=== PATIENT | female | born 1930 | race Caucasian/White ===

== ENCOUNTER 2016-08-08 09:00 | Day surgery (SDC) | payer OTHER ==
[2016-08-08] VITALS (8 sets, daily range): BP systolic 107–167; BP diastolic 51–77; PULSE 70–94; RESP 16–20; TEMP 97.6–97.7; O2SAT 92–97
[~2016-08-08] VITALS: Ht 162.6 cm; Wt 90.5 kg
[2016-08-08] MEDS ORDERED: LISI2.5T3 PO (09:35)
[2016-08-08] MEDS ORDERED: HYDR12.57 PO (09:35)
[2016-08-08] MEDS ORDERED: ATOR1TAB18 PO (09:35)
[2016-08-08] MEDS ORDERED: SODIUM CHLOR 0.9% 1000 ML IV SCH (09:45)
[2016-08-08] MEDS ORDERED: SODIUM CHLORIDE 5 ML FLUSH PRN IVF (09:45)
[2016-08-08] MEDS ORDERED: IMPLANTED VASCULAR ACCESS DEVICE/PORT - SODIUM CHLORIDE FLUSH PRN IVF (09:45)
[2016-08-08] MEDS ORDERED: IMPLANTED VASCULAR ACCESS DEVICE/PORT - SODIUM CHLORIDE FLUSH IVF SCH (10:00)
[2016-08-08] MEDS ORDERED: MIDAZOLAM HCL 5 MG/5 ML VIAL ONE (10:13)
[2016-08-08] MEDS ORDERED: fentaNYL CITRATE 250 MCG/5 ML AMP ONE (10:13)
[2016-08-08] MEDS ORDERED: LIDOCAINE 1%/EPINEPHrine 1:100,000 SOLN 20 ML VIAL ONE (12:16)
[2016-08-08] MEDS ORDERED: oxyCODONE/ACETAMINOPHEN 5 MG/325 MG TAB PO PRN (12:45)
--- NOTE | 2016-08-08 13:20 | RADRPT ---
EXAM DATE/TIME: 08/08/2016 12:05 [facility] COMPARISON: No previous studies available for comparison. INDICATIONS : Right lung mass; biopsy. SEDATION TIME: 45 minutes BIOPSY SITE: Right MEDICATION(S): 1.) 4 mg midazolam (Versed) IV 2.) 125 mcg fentanyl (Sublimaze) SAMPLER RADIOACTIVE WASTE(s): Edel Alcantara RN DEVICE(S): 1.) 18 gauge Core biopsy needle 2.) 20 gauge Temno core biopsy needle MEDICAL HISTORY : Carcinoma, not otherwise specified. SURGICAL HISTORY : None. ENCOUNTER: Initial ACUITY: 1 day PAIN SCORE: 0/10 LOCATION: Right chest A total of four core specimen(s) were obtained and sent to the laboratory for pathologic evaluation. PROCEDURE: 1. CT guided lung biopsy. Prior to the procedure informed consent was obtained. Any appropriate prior imaging studies were rev iewed. Using automated exposure control and adjustment of the mA and/or kV according to patient size, radiation dose was kept as low as reasonably achievable to obtain optimal diagnostic quality images. The site was prepped in a sterile fashion. Full sterile technique was used, including cap, mask, elsie rile gloves and gown and a large sterile sheet. Hand hygiene and 2% chlorhexidine and/or betadine/al cohol prep was utilized per protocol for cutaneous antisepsis. The skin and subcutaneous tissues wer e infiltrated with local anesthetic solution. An attempt was made to access an anterior approach. This was unsuccessful. The prone oblique approach was then used. An 18 gauge needle was placed down to the lesion and 4 cor e was obtained. This is resulted in small pneumothorax and moderate hemorrhage. The pneumothorax w as aspirated out. Follow-up CT scan reveals moderate hemorrhage within it trace pneumothorax. Conscious sedation was performed with the prescribed dosages and duration as above in the presence of an independent trained radiology nurse to assist in the monitoring of the patient. EKG and oximetry remained stable throughout the procedure. The patient tolerated the procedure well and returned to the outpatient unit with supplemental oxyge n and stable. CONCLUSION: CT guided biopsy of nodule in the right lung posteriorly resulting in moderate hemorrhage and small p neumothorax. Pathology and culture are pending. Daren Wadsworth MD FACR on August 08, 2016 at 13:16 Board Certified Radiologist. This report was verified electronically.
--- NOTE | 2016-08-08 15:10 | RADRPT ---
EXAM DATE/TIME: 08/08/2016 13:40 [facility] COMPARISON: No previous studies available for comparison. INDICATIONS : Post right lung biopsy MEDICAL HISTORY : None. SURGICAL HISTORY : None. ENCOUNTER: Subsequent ACUITY: 1 day PAIN SCORE: 0/10 LOCATION: Right chest FINDINGS: [id number] is in good position. A small amount of hemorrhage remains in the right lung. The left lung is clear. Heart and pulmonary vascularity are normal. CONCLUSION: 1. There is no pneumothorax. 2. Very small amount of hemorrhage present in the right lung, substantially improved in the interval. Daren Wadsworth MD FACR on August 08, 2016 at 14:57 Board Certified Radiologist. This report was verified electronically.
[2016-08-08] MEDS ORDERED: SODIUM CHLORIDE 5 ML FLUSH BID IVF SCH (21:00)
== END 2016-08-08 16:27 | disposition home or self-care (01) ==
LOC: HRAD 09:00 → HRIP 09:07 → HRAD 16:27
PROVIDERS: ATTEND Internal Medicine Hematology & Oncology
DX: R91.1 Solitary pulmonary nodule (principal); J95.811 Postprocedural pneumothorax; I10 Essential (primary) hypertension; E78.00 Pure hypercholesterolemia, unspecified; K44.9 Diaphragmatic hernia without obstruction or gangrene; Z85.72 Personal history of non-Hodgkin lymphomas; K57.30 Diverticulosis of large intestine without perforation or abscess without bleeding; D64.9 Anemia, unspecified
CPT/HCPCS: 32405; 71010; 77012; 87015; 87070; 87102; 87116; 87176; 87205; 87206; 88305; J1642; J2250; J3010; J7030

== ENCOUNTER 2016-12-19 06:30 | Day surgery (SDC) | payer OTHER ==
[~2016-12-19] VITALS: Ht 162.6 cm; Wt 90.0 kg
[~2016-12-19 06:30] MED LIST: ATOR1TAB18 PO; HYDR12.57 PO; LISI2.5T3 PO
[2016-12-19 06:48] VITALS: BP 135/76; PULSE 76; RESP 20; TEMP 98.3; O2SAT 92
[2016-12-19] MEDS ORDERED: SODIUM CHLOR 0.9% 1000 ML IV SCH (07:00)
[2016-12-19] MEDS ORDERED: MULTTAB67 PO (07:08)
[2016-12-19] MEDS ORDERED: CETI10 PO (07:08)
[2016-12-19] MEDS ORDERED: FLUT50SP EACH NARE (07:08)
[2016-12-19] MEDS ORDERED: OMEP40CA2 PO (07:08)
[2016-12-19] MEDS ORDERED: MIRA3350 PO (07:08)
[2016-12-19] MEDS ORDERED: LIDOCAINE 1%/EPINEPHrine 1:100,000 SOLN 20 ML VIAL ONE (07:45)
[2016-12-19] MEDS ORDERED: MIDAZOLAM HCL 5 MG/5 ML VIAL ONE (07:53)
[2016-12-19] MEDS ORDERED: fentaNYL CITRATE 250 MCG/5 ML AMP ONE (07:53)
[2016-12-19 08:35] VITALS: BP 152/70; PULSE 67; RESP 18; TEMP 97.7; O2SAT 93
[2016-12-19 08:50] VITALS: BP 141/76; PULSE 67; RESP 18; O2SAT 93
[2016-12-19 09:20] VITALS: BP 126/60; PULSE 66; RESP 18; O2SAT 95
[2016-12-19 09:50] VITALS: BP 128/57; PULSE 69; RESP 18; O2SAT 92
--- NOTE | 2016-12-19 09:50 | RADRPT ---
EXAM DATE/TIME: 12/19/2016 08:10 [facility] COMPARISON: No previous studies available for comparison. INDICATIONS : Right lung mass. RADIATION DOSE: 12.74 CTDIvol (mGy) MEDICAL HISTORY : Hypertension. SURGICAL HISTORY : None. ENCOUNTER: Initial ACUITY: 1 day PAIN SCALE: 0/10 LOCATION: Right chest TECHNIQUE: Volumetric scanning of the chest was performed. Using automated exposure control and adjustment of t he mA and/or kV according to patient size, radiation dose was kept as low as reasonably achievable to obtain optimal diagnostic quality images. DICOM format image data is available electronically for r eview and comparison. Follow-up recommendations for incidentally detected pulmonary nodules are based at a minimum on nodul e size and patient risk factors according to Fleischner Society Guidelines. FINDINGS: Mrs. King came in for a re-biopsy of the nodule in the right lung posteriorly. Previous biopsy had resulted in significant hemorrhage. There is minimal retraction about the nodule and it now lies behind scapula and rib. With multiple changes in position I am unable to obtain access to this lesion. Lesion does have a sm all central cavity within it somewhat of a donut-shaped configuration as well as an air bronchogram coursing righ t through it. Usually things that are bronchocentric and not angiocentric are inflammatory and not neoplastic. I have discussed the options at length with Mrs. King and Dr. Mauricio. Our plan is to continue to fol low. There is mild cardiomegaly evident. CONCLUSION: Unable to biopsy because nodule is now hidden behind lung and scapula. Daren Wadsworth MD FACR on December 19, 2016 at 9:34 Board Certified Radiologist. This report was verified electronically.
== END 2016-12-19 10:15 | disposition home or self-care (01) ==
LOC: HRAD 06:30 → HRIP 06:34 → HRAD 10:15
PROVIDERS: ATTEND Internal Medicine Hematology & Oncology
DX: R91.8 Other nonspecific abnormal finding of lung field (principal); I10 Essential (primary) hypertension; I51.7 Cardiomegaly
CPT/HCPCS: 71250; J2250; J3010; J7030

== ENCOUNTER 2017-06-21 06:24 | Day surgery (SDC) | payer OTHER ==
[2017-06-21] MEDS: SODIUM CHLOR 0.9% 1000 ML IV (07:00)
[2017-06-21] MEDS ORDERED: IMPLANTED VASCULAR ACCESS DEVICE/PORT - SODIUM CHLORIDE FLUSH IV FLUSH (07:00)
[2017-06-21] MEDS ORDERED: SODIUM CHLORIDE 2 ML FLUSH PRN IV FLUSH (07:00)
[2017-06-21] MEDS: LIDOCAINE 1%/EPINEPHrine 1:100,000 SOLN 20 ML VIAL (07:55)
[2017-06-21] MEDS: MIDAZOLAM HCL 2 MG/2 ML VIAL (08:50)
[2017-06-21] MEDS ORDERED: SODIUM CHLORIDE 2 ML FLUSH BID IV FLUSH (09:00)
[2017-06-21] MEDS: IMPLANTED VASCULAR ACCESS DEVICE/PORT - SODIUM CHLORIDE FLUSH PRN IV FLUSH (13:51)
== END 2017-06-21 14:00 | disposition home or self-care (01) ==
LOC: HRAD 06:24 → HRIP 06:31 → HRAD 14:00
DX: R91.8 Other nonspecific abnormal finding of lung field (principal); I10 Essential (primary) hypertension; C85.10 Unspecified B-cell lymphoma, unspecified site
CPT/HCPCS: 32405; 71045; 77012; 88305; 88333

== ENCOUNTER → 2017-07-21 | Outpatient (CLI) | payer OTHER ==
[~2017-07-21] MED LIST changes: -ATOR1TAB18 PO; +ATOR80TA45 PO; +CETI10 PO; +FLUT50SP EACH NARE; +MIRA3350 PO; +MULTTAB67 PO; +OMEP40CA2 PO; +SACC1CAP3 PO
== END ==
LOC: HRSP 09:24
PROVIDERS: ATTEND Thoracic Surgery (Cardiothoracic Vascular Surgery)
DX: R91.1 Solitary pulmonary nodule (principal); I10 Essential (primary) hypertension; I35.0 Nonrheumatic aortic (valve) stenosis; C85.90 Non-Hodgkin lymphoma, unspecified, unspecified site
CPT/HCPCS: 94010

== ENCOUNTER 2017-08-08 05:36 | Inpatient (IN) | payer OTHER, MEDICARE ==
[~2017-08-08] VITALS: Ht 162.6 cm; Wt 92.5 kg
[2017-08-08] VITALS (9 sets, daily range): BP systolic 118–147; BP diastolic 53–62; PULSE 73–84; RESP 16–19; TEMP 97.3–98.4; O2SAT 94–99
[~2017-08-08 05:36] MED LIST changes: -HYDR12.57 PO; +HYDR25TA5 PO; -OMEP40CA2 PO
[2017-08-08] MEDS ORDERED: CHLORHEXIDINE GLUCONATE 2 % 1 PACK (2 CLOTHS) TOPICAL PRN (06:00)
[2017-08-08] MEDS ORDERED: POVIDONE IODINE 5% (ANTISEPSIS KIT) 4 APPLICATIONS EACH NARE PRN (06:00)
[2017-08-08] MEDS ORDERED: LACTATED RINGER'S 1000 ML IV PRN (06:00)
[2017-08-08] MEDS ORDERED: METOPROLOL TARTRATE 25 MG TAB PO PRN (06:00)
[2017-08-08] MEDS ORDERED: SODIUM CHLORID 0.9% 500 ML IV PRN (06:00)
[2017-08-08] MEDS ORDERED: ceFAZolin 2 GM PREMIX 50 ML ONE (06:56)
[2017-08-08] MEDS ORDERED: HEPARIN SODIUM - IV 10,000 UNITS/10 ML VIAL ONE (06:57)
[2017-08-08] MEDS ORDERED: BUPIVACAINE LIPOSO PF 1.3% INJ 20 ML, DEXAMETHASONE INJ 4 MG, MORPHINE INJ 8 MG in SODI... IRRIGATION SCH (07:15)
[2017-08-08] MEDS ORDERED: NOREPINEPHRINE 4 MG/4 ML AMP ONE (07:20)
[2017-08-08] MEDS ORDERED: VASOPRESSIN 20 UNITS/ML VIAL ONE (07:21)
[2017-08-08] MEDS ORDERED: ARTIFICIAL TEARS OPTH OINT 3.5 APPLIC/3.5 GM TUBO ONE (07:51)
[2017-08-08] MEDS ORDERED: ACETAMINOPHEN 1000 MG/100 ML 100 ML IV ONE (09:37)
[2017-08-08] MEDS ORDERED: DEXAMETHASONE SOD PHOS 4 MG/ML VIAL IV ONE (12:00)
[2017-08-08] MEDS ORDERED: PHENYLEPHRINE HCL 10 MG/ML VIAL IV ONE (12:00)
[2017-08-08] MEDS ORDERED: NORMOSOL R INJ 2,000 ML IV ONE (12:00)
[2017-08-08] MEDS ORDERED: GLYCOPYRROLATE 1 MG/5 ML SYRINGE IV PUSH ONE (12:00)
[2017-08-08] MEDS ORDERED: VECURONIUM BROMIDE 20 MG VIAL IV ONE (12:00)
[2017-08-08] MEDS ORDERED: ROCURONIUM INJ 50 MG/5 ML SYRINGE IV PUSH ONE (12:00)
[2017-08-08] MEDS ORDERED: LACTATED RINGER'S 1000 ML INJ 2,000 ML IV ONE (12:00)
[2017-08-08] MEDS ORDERED: PROPOFOL 200 MG/20 ML AMP IV ONE (12:00)
[2017-08-08] MEDS ORDERED: NEOSTIGMINE 5 MG/5 ML SYRINGE IV PUSH ONE (12:00)
[2017-08-08] MEDS ORDERED: STERILE WATER FOR INJECTION 20 ML VIAL IV ONE (12:00)
[2017-08-08] MEDS ORDERED: ONDANSETRON HCL 4 MG/2 ML VIAL IV ONE (12:00)
[2017-08-08] MEDS ORDERED: PHENYLEPH/NS 1000 MCG/10 ML SYR IV ONE (12:00)
[2017-08-08] MEDS ORDERED: LIDOCAINE HCL 1% PF 5 ML SYRINGE OTHER ONE (12:00)
[2017-08-08] MEDS ORDERED: ceFAZolin INJ 1,000 MG VIAL ONE (12:17)
[2017-08-08] MEDS ORDERED: SODIUM CHLORIDE 0.9% FLUSH 10 ML FLUSH IV FLUSH PRN (12:30)
[2017-08-08] MEDS ORDERED: MORPHINE SULFATE 30 MG/30 ML PCA IV SCH (12:30)
[2017-08-08] MEDS ORDERED: NALOXONE HCL 0.4 MG/ML AMP IV PUSH PRN (12:30)
[2017-08-08] MEDS ORDERED: *morphine SULFATE 8 MG/ML PERIprocedure ONLY ONE (12:58)
[2017-08-08] MEDS ORDERED: Post-op Orders (for Pharmacy) OTHER ONE (13:00)
[2017-08-08] MEDS ORDERED: *diphenhydrAMINE HCL 50 MG/ML VIAL PERIprocedural Use ONLY ONE (13:03)
--- NOTE | 2017-08-08 13:03 | PD.OP ---
cc: Antoine Haines MD; Jim Mauricio MD Operative Report Date of Surgery: Aug 08, 2017 Preoperative Diagnosis: Postoperative Diagnosis: Procedure: 1. Robotic Right Lower Lobe Mass Resection 2. Right Muscle-Sparing Thoracotomy 3. Right Lower Lobectomy 4. Mediastinal Lymph Node Dissection. 5. Intercostal Nerve Block Surgeon: Antoine Haines Sheet Metal Erector(s): Mariana Rangel Operation and Findings: PREOPERATIVE DIAGNOSIS 1. Right Lower Lobe Lung Mass 2. COPD POSTOPERATIVE DIAGNOSIS 1. Right Lower Lobe Adenocarcinoma 2. COPD PROCEDURES 1. Robotic Right Lower Lobe Mass Resection 2. Right Muscle-Sparing Thoracotomy 3. Right Lower Lobectomy 4. Mediastinal Lymph Node Dissection. 5. Intercostal Nerve Block SURGEON Antoine Haines MD SECTION WEAVER AKHIL Childress ANESTHESIA General endotracheal. ELECTRIC MOTOR WINDERS ASSEMBLER KELSEY Hahn MD OPERATIVE TIME Please see record. COMPLICATIONS None. INDICATION FOR PROCEDURE The patient is a 87 yo with slowly enlarging right lower lobe lung mass, presenting for resection. DESCRIPTION OF PROCEDURE The patient was brought to the operating suite and placed in supine position. Following satisfactory induction of general endotracheal anesthesia, the patient was placed in the left lateral decubitus position. The right chest was then prepped and draped in the usual sterile fashion. Under direct vision, camera was introduced in the 8th ICS and insufflation was begun into the chest . Instrument arm 1, 2, and 3 were placed. Lesion was identified and resected using a surgical stapler. Frozen section was consistent with Adenocarcinoma. At this time, plans were made to proceed with a formal lower lobectomy. It was noted that the patient was desaturating with CO2 insufflation, therefore, the procedure was converted to an open approach. A standard muscle-sparing posterolateral thoracotomy was performed and the serratus anterior muscle spared. The inferior pulmonary ligament was divided. The pulmonary arterial supply to the lower lobe was identified, dissected free and divided as was the pulmonary venous supply. The bronchus was then dissected free, clamped and the remaining lung was insufflated without any difficulty. Lymph node dissections of level 4, 7, 8, 9 and 10 were performed along with the course of this removal. Some of these were retained with the specimen. Specimen was removed from the chest. The remaining lung was submerged under sterile water and inflated. No air leaks were identified. At this point the closure was undertaken. A 28-Croatian chest tube was placed. Intercostal nerve block was performed at the level of the incision and 3 rib spaces above and below using Exparel with Decadron solution. The pericostal space was approximated with interrupted #1 Vicryl sutures in a pericostal fashion. The serratus fascia and Latissimus dorsi were closed with running 0-Vicryl and the remaining wounds closed with 3-0, and 4-0 Monocryl. The patient tolerated the procedure well and postoperatively went to the PACU in stable condition. Antoine Haines MD Aug 08, 2017 13:03
[2017-08-08] MEDS ORDERED: HYDROmorphone HCL PF 2 MG/ML VIAL ONE (13:35)
[2017-08-08] MEDS ORDERED: LORazepam 2 MG/ML VIAL ONE (13:50)
[2017-08-08] MEDS: KETOROLAC TROMETHAMINE 30 MG/ML (IVP) VIAL IV PUSH SCH ×2 (14:00→21:24)
[2017-08-08] MEDS ORDERED: ACETAMINOPHEN 325 MG TAB PO PRN (14:00)
[2017-08-08] MEDS ORDERED: MAGNESIUM HYDROXIDE SUSP 30 ML CUP PO PRN (14:00)
[2017-08-08] MEDS ORDERED: PILL SPLITTER OTHER PRN (14:00)
[2017-08-08] MEDS ORDERED: PCA - TOTAL MG MORPHINE DELIVERED PER SHIFT SCH (14:00)
[2017-08-08] MEDS ORDERED: RESP: ALBUTEROL 2.5 MG/3 ML NEB (PRN) NEB (14:00)
[2017-08-08] MEDS ORDERED: DO NOT ADM ANY ANTICOAGULANT DRUGS PRN (14:30)
--- NOTE | 2017-08-08 14:43 | PD.CAR.PN ---
CVT Progress Note Subjective/Hospital Course: 87/ female known longstanding history of a slowly enlarging right lower lobe lung mass which is PET positive. PMH: , DJD, HLP, HTN, Non-Hodgkin's lymphoma , urge urinary incontinence surgery: 08/08 1. Robotic Right Lower Lobe Mass Resection 2. Right Muscle-Sparing Thoracotomy 3. Right Lower Lobectomy 4. Mediastinal Lymph Node Dissection. 5. Intercostal Nerve Block Objective: Vital Signs Date Time Temp Pulse Resp B/P (MAP) Pulse Ox O2 Delivery O2 Flow Rate FiO2 08/08/17 06:20 97.9 70 20 156/72 (100) 99 Sara Santos Aug 08, 2017 14:43
--- NOTE | 2017-08-08 14:50 | RADRPT ---
EXAM DATE/TIME: 08/08/2017 14:06 [facility] COMPARISON: CHEST EXPIRATION ONLY, June 21, 2017, 10:52. INDICATIONS : S/p thoracotomy MEDICAL HISTORY : Hypertension. lung mass SURGICAL HISTORY : Appendectomy. ENCOUNTER: Initial ACUITY: 1 day PAIN SCORE: Non-responsive. LOCATION: Bilateral chest FINDINGS: Right IJ [id number] in stable position. Postsurgical changes of right thoracotomy with right-sided apical chest tube in place. There is a small right apical pneumothorax. Cardiomediastinal contours a re stable. Remainder of the exam is unchanged. CONCLUSION: 1. Postsurgical features of right sided thoracotomy with right apical chest tube in place. 2. Small apical pneumothorax. José Miguel Adkins MD on August 08, 2017 at 14:46 Board Certified Radiologist. This report was verified electronically.
[2017-08-08] MEDS: ACETAMINOPHEN 1000 MG/100 ML 100 ML IV SCH ×2 (16:48→21:23)
[2017-08-08] MEDS: ACETAMINOPHEN/HYDROcodone 325 MG/5 MG TAB PO PRN (19:20)
[2017-08-08] MEDS: RESP: ALBUTEROL 2.5 MG/3 ML NEB (SCH) NEB (20:36)
[2017-08-08] MEDS ORDERED: NON-FORMULARY DRUG (Saccharomyces Boulardii (Probiotic) 250 MG) PO SCH (21:00)
[2017-08-08] MEDS: PANTOPRAZOLE SOD 40 MG DELAYED RELEASE TAB PO SCH (21:23)
[2017-08-08] MEDS: SODIUM CHLORIDE 0.9% FLUSH 10 ML FLUSH IV FLUSH SCH (21:23)
[2017-08-08] MEDS: DOCUSATE CALCIUM 240 MG CAP PO SCH (21:23)
[2017-08-09] VITALS (26 sets, daily range): BP systolic 101–151; BP diastolic 50–70; PULSE 68–88; RESP 18–20; TEMP 97.6–98.9; O2SAT 92–98
[2017-08-09] MEDS: ACETAMINOPHEN/HYDROcodone 325 MG/5 MG TAB PO PRN ×4 (02:33→20:51)
[2017-08-09] MEDS: KETOROLAC TROMETHAMINE 30 MG/ML (IVP) VIAL IV PUSH SCH ×2 (02:33→08:00)
[2017-08-09] MEDS: RESP: ALBUTEROL 2.5 MG/3 ML NEB (SCH) NEB ×4 (04:31→21:03)
[2017-08-09] MEDS: ACETAMINOPHEN 1000 MG/100 ML 100 ML IV SCH ×2 (04:33→10:00)
--- NOTE | 2017-08-09 05:14 | RADRPT ---
EXAM DATE/TIME: 08/09/2017 03:22 [facility] COMPARISON: CHEST SINGLE AP, August 08, 2017, 14:06. INDICATIONS : S/p thoracotomy. MEDICAL HISTORY : Hypertension. Lung mass SURGICAL HISTORY : Appendectomy. ENCOUNTER: Subsequent ACUITY: 2 days PAIN SCORE: 4/10 LOCATION: Bilateral chest FINDINGS: A single portable frontal view the chest shows a small right apical pneumothorax despite right thorac ostomy tube. This is stable. There is elevation the right hemidiaphragm. No infiltrates or effusions. Heart is at the upper limits of normal in terms of size. A right-sided Port-A-Cath. CONCLUSION: Stable small right apical pneumothorax. Chapin Campbell Jr., MD on August 09, 2017 at 5:11 Board Certified Radiologist. This report was verified electronically.
[2017-08-09 05:15] LABS: BICARBONATE 26.1 MEQ/L (21.0-32.0); CALCIUM 8.8 MG/DL (8.5-10.1); CREATININE 0.91 MG/DL (0.50-1.00)
[2017-08-09 06:53] LABS: BASOPHIL % 0.2 % (0.0-2.0); EOSINOPHIL % 0.1 % (0.0-4.0); HEMATOCRIT 33.7 % (35.0-46.0); HEMOGLOBIN 11.6 GM/DL (11.6-15.3); LYMPH % 6.8 % (9.0-44.0); LYMPHOCYTE # 0.7 TH/MM3 (1.0-4.8); MEAN CORPUSCULAR HEMOGLOBIN 30.5 PG (27.0-34.0); MEAN CORPUSCULAR HGB CONC 34.3 % (32.0-36.0); MEAN PLATELET VOLUME 7.6 FL (7.0-11.0); MONO % 6.2 % (0.0-8.0); MONOCYTE # 0.6 TH/MM3 (0-0.9); NEUT % 86.7 % (16.0-70.0); PLATELET COUNT 336 TH/MM3 (150-450); RED BLOOD COUNT 3.79 MIL/MM3 (4.00-5.30); WHITE BLOOD COUNT 10.3 TH/MM3 (4.0-11.0)
[2017-08-09] MEDS: ATORVASTATIN 80 MG TAB PO SCH (08:41)
[2017-08-09] MEDS: MULTIVITAMIN TAB PO SCH (08:41)
[2017-08-09] MEDS: CETIRIZINE HCL 10 MG TAB PO SCH (08:41)
[2017-08-09] MEDS: LISINOPRIL 5 MG TAB PO SCH (08:41)
[2017-08-09] MEDS: HYDROCHLOROTHIAZIDE 25 MG TAB PO SCH (08:41)
[2017-08-09] MEDS: SODIUM CHLORIDE 0.9% FLUSH 10 ML FLUSH IV FLUSH SCH ×2 (09:00→20:51)
[2017-08-09] MEDS: ONDANSETRON HCL 4 MG/2 ML VIAL IV PUSH PRN ×2 (09:14→18:47)
[2017-08-09] MEDS ORDERED: diphenhydrAMINE HCL 25 MG CAP PO PRN (15:00)
[2017-08-09] MEDS ORDERED: METOCLOPRAMIDE HCL 10 MG/2 ML VIAL IV PUSH PRN (15:00)
--- NOTE | 2017-08-09 15:15 | PD.CAR.PN ---
CVT Progress Note Subjective/Hospital Course: 87/ female known longstanding history of a slowly enlarging right lower lobe lung mass which is PET positive. PMH: , DJD, HLP, HTN, Non-Hodgkin's lymphoma , urge urinary incontinence surgery: 08/08 1. Robotic Right Lower Lobe Mass Resection 2. Right Muscle-Sparing Thoracotomy 3. Right Lower Lobectomy 4. Mediastinal Lymph Node Dissection. 5. Intercostal Nerve Block 08/09 pt had nausea and vomiting last pm , now improved add prn reglan consult pt/ pulm toileting path pending CXR noted small stable right apical PTX Objective: GENERAL: A&O x3 SKIN: Warm and dry. incisions intact right postero latral chest wall HEAD: Normocephalic. EYES: No scleral icterus. No injection or drainage. NECK: Supple, trachea midline. No JVD or lymphadenopathy. CARDIOVASCULAR: Regular rate and rhythm without murmurs, gallops, or rubs. RESPIRATORY: Breath sounds equal bilaterally. No accessory muscle use chest tube 158cc/ 12 hr no air leak. GASTROINTESTINAL: Abdomen soft, non-tender, nondistended. MUSCULOSKELETAL: No cyanosis, or edema. BACK: Nontender without obvious deformity. No CVA tenderness. Vital Signs Date Time Temp Pulse Resp B/P (MAP) Pulse Ox O2 Delivery O2 Flow Rate FiO2 08/09/17 14:00 70 08/09/17 13:00 72 08/09/17 12:00 78 08/09/17 11:00 71 08/09/17 11:00 98.2 70 18 101/50 (67) 95 08/09/17 10:43 93 21 08/09/17 10:00 76 08/09/17 09:00 72 08/09/17 08:00 80 08/09/17 07:45 94 Room Air 08/09/17 07:45 98.9 72 20 121/58 (79) 94 08/09/17 07:45 72 08/09/17 06:14 80 08/09/17 05:15 80 08/09/17 04:23 75 08/09/17 03:12 70 08/09/17 03:12 98.3 74 20 140/60 (86) 92 08/09/17 02:48 88 08/09/17 01:29 74 08/09/17 00:00 80 08/08/17 23:20 74 08/08/17 23:20 98.0 77 18 118/53 (74) 94 08/08/17 22:52 73 08/08/17 21:30 84 08/08/17 20:36 96 21 08/08/17 20:32 77 08/08/17 19:30 Room Air 08/08/17 19:30 98.4 82 19 144/62 (89) 98 08/08/17 19:30 78 08/08/17 18:00 80 08/08/17 17:00 74 08/08/17 16:02 97 Room Air 08/08/17 15:36 97.3 77 16 147/61 (89) 99 08/08/17 15:30 97.9 72 17 142/64 (90) 98 Nasal Cannula 3 08/08/17 15:15 77 15 146/62 (90) 98 Nasal Cannula 3 Labs: Laboratory Tests Test 08/09/17 04:25 08/09/17 05:53 Blood Urea Nitrogen 19 MG/DL (7-18) Creatinine 0.91 MG/DL (0.50-1.00) Random Glucose 110 MG/DL (74-106) Calcium Level 8.8 MG/DL (8.5-10.1) Sodium Level 130 MEQ/L (136-145) Potassium Level 4.1 MEQ/L (3.5-5.1) Chloride Level 92 MEQ/L (98-107) Carbon Dioxide Level 26.1 MEQ/L (21.0-32.0) Anion Gap 12 MEQ/L (5-15) Estimat Glomerular Filtration Rate 58 ML/MIN (>89) White Blood Count 10.3 TH/MM3 (4.0-11.0) Red Blood Count 3.79 MIL/MM3 (4.00-5.30) Hemoglobin 11.6 GM/DL (11.6-15.3) Hematocrit 33.7 % (35.0-46.0) Mean Corpuscular Volume 89.0 FL (80.0-100.0) Mean Corpuscular Hemoglobin 30.5 PG (27.0-34.0) Mean Corpuscular Hemoglobin Concent 34.3 % (32.0-36.0) Red Cell Distribution Width 14.0 % (11.6-17.2) Platelet Count 336 TH/MM3 (150-450) Mean Platelet Volume 7.6 FL (7.0-11.0) Neutrophils (%) (Auto) 86.7 % (16.0-70.0) Lymphocytes (%) (Auto) 6.8 % (9.0-44.0) Monocytes (%) (Auto) 6.2 % (0.0-8.0) Eosinophils (%) (Auto) 0.1 % (0.0-4.0) Basophils (%) (Auto) 0.2 % (0.0-2.0) Neutrophils # (Auto) 9.0 TH/MM3 (1.8-7.7) Lymphocytes # (Auto) 0.7 TH/MM3 (1.0-4.8) Monocytes # (Auto) 0.6 TH/MM3 (0-0.9) Eosinophils # (Auto) 0.0 TH/MM3 (0-0.4) Basophils # (Auto) 0.0 TH/MM3 (0-0.2) CBC Comment DIFF FINAL Differential Comment Result Diagram: 08/09/17 0553 08/09/17 0425 Telemetry: NSR (1) S/P thoracotomy Plan: puilm toileting OOB, ambulate leave chest tube in pain control . antiemetics for nausea (2) Hx of non-Hodgkin's lymphoma (3) Lung mass Plan: path pending (4) Hyperlipemia (5) Hypertension Plan: controlled Sara Santos Aug 09, 2017 15:15
--- NOTE | 2017-08-09 15:21 | HHI.FF ---
Face to Face Verification Diagnosis: (1) Lung mass (2) Hx of non-Hodgkin's lymphoma (3) Hyperlipemia (4) Hypertension (5) S/P thoracotomy Home Health Nursing Order: Medication education-adverse effect Wound care and dressing changes Nursing assessment with vital signs Instructions: Thoracic Surgery patients Mandatory frequency Assess and evaluation, 2-3 x a week for one week Initial visit 1. Review post chest surgery instructions chest precautions, Activity, Elastic hose, Incision care, Driving, Incentive spirometry, Smoking, [place] , Work and other) 2. Need Betadine to paint incision 3. Medication reconciliation 4. Importance of follow up care/ check on appointments 5. Make calendar record temperature daily 6. When to call Home nurse, review instructions, phone list 7. Incentive Spirometry, demonstration Visit 1- Begin discharge instruction for patient family and/ or caregiver using teach back method- 1. Signs and symptoms of infection 2. Disease characteristics 3. Medicines and side effects 4. Foods and nutrition/ appetite 5. Infection control/ hand washing/ hygiene Visit 2- Continue teaching 1. Discharge instructions- include additional information on smoking cessation , Visit 3- Continue teaching- 1. Cough and deep breathing, incision monitoring. For any questions please call : / [facility] Cardiothoracic Surgery Incentive spirometry Q1 hr x 10, while awake, also use acapella device hourly whole awake chest wall Precautions: NO pushing or pulling, ( pt must use chest pillow to support chest with all activities and with coughing Daily incision care: ok to shower daily ( 48hrs after chest tube removed) , no tub bath. Wash all incisions with liquid dial soap, clean wash cloth to each site, rinse and pat dry. Observe for any signs of infection, such as drainage which is dark yellow, wray, green or foul smelling. Immediately report to the surgeon any drainage from the chest incision, or legs, and for any abnormal drainage from the chest tube sites. Notify surgeon if any temp >101.5 degrees F. When specialty dressing removed/ or if you do not have one, continue to shower daily as above, then rinse and pat incision dry and paint with betadine daily x 5 days. Allow steri strips to fall off if you have any. Avoid lotions , creams, salves, oils, etc. for the first month F/U appointment: as per DC instructions: PCP in 2 weeks, CV surgeon 2 weeks, Blasting [facility] 3-4 weeks For any questions regarding incisions/ dressing / meds / post op care or above Symptoms, Monday 8am-5pm Heart & Vascular Surgery Office ( Dr. Haines & Dr. Whiteside), After Hours / Nights (5pm -8am) Weekends and Holidays Please call [facility] Cardiac Inter[facility] Unit ([facility]) Charge Nurse I have seen patient Lisandra King on 08/09/17. My clinical findings support the need for the requested home health care services because: Patient has SOB I certify that my clinical findings support that this patient is homebound because: Post-op weakness Sara Santos Aug 09, 2017 15:21
[2017-08-09] MEDS: DOCUSATE CALCIUM 240 MG CAP PO SCH (20:50)
[2017-08-09] MEDS: PANTOPRAZOLE SOD 40 MG DELAYED RELEASE TAB PO SCH (20:51)
[2017-08-10] VITALS (27 sets, daily range): BP systolic 108–152; BP diastolic 50–65; PULSE 72–111; RESP 18–21; TEMP 98–99.3; O2SAT 93–97
[2017-08-10] MEDS: RESP: ALBUTEROL 2.5 MG/3 ML NEB (SCH) NEB ×3 (04:33→21:21)
[2017-08-10] MEDS: ACETAMINOPHEN/HYDROcodone 325 MG/5 MG TAB PO PRN ×4 (04:41→22:24)
[2017-08-10] MEDS: ONDANSETRON HCL 4 MG/2 ML VIAL IV PUSH PRN ×2 (08:54→14:25)
[2017-08-10] MEDS: SODIUM CHLORIDE 0.9% FLUSH 10 ML FLUSH IV FLUSH SCH ×2 (08:54→20:47)
[2017-08-10] MEDS: CETIRIZINE HCL 10 MG TAB PO SCH (08:55)
[2017-08-10] MEDS: ATORVASTATIN 80 MG TAB PO SCH (08:55)
[2017-08-10] MEDS: LISINOPRIL 5 MG TAB PO SCH (08:55)
[2017-08-10] MEDS: MULTIVITAMIN TAB PO SCH (08:55)
[2017-08-10] MEDS: HYDROCHLOROTHIAZIDE 25 MG TAB PO SCH (08:55)
--- NOTE | 2017-08-10 09:47 | PD.CAR.PN ---
CVT Progress Note Subjective/Hospital Course: 87/ female known longstanding history of a slowly enlarging right lower lobe lung mass which is PET positive. PMH: , DJD, HLP, HTN, Non-Hodgkin's lymphoma , urge urinary incontinence surgery: 08/08 1. Robotic Right Lower Lobe Mass Resection 2. Right Muscle-Sparing Thoracotomy 3. Right Lower Lobectomy 4. Mediastinal Lymph Node Dissection. 5. Intercostal Nerve Block 08/09 pt had nausea and vomiting last pm , now improved add prn reglan consult pt/ pulm toileting path pending CXR noted small stable right apical PTX 08/10 no air leak / chest drained 40cc chest tube removed without difficulty will consult PT eval for dc in am Objective: GENERAL: A&) x 3 no further nausea SKIN: Warm and dry. incision intact right postero lateral chest wall / skin tears from tape HEAD: Normocephalic. EYES: No scleral icterus. No injection or drainage. NECK: Supple, trachea midline. No JVD or lymphadenopathy. CARDIOVASCULAR: Regular rate and rhythm without murmurs, gallops, or rubs. RESPIRATORY: Breath sounds equal bilaterally. No accessory muscle use. diminished in bases GASTROINTESTINAL: Abdomen soft, non-tender, nondistended. MUSCULOSKELETAL: No cyanosis, or edema. BACK: Nontender without obvious deformity. No CVA tenderness. Vital Signs Date Time Temp Pulse Resp B/P (MAP) Pulse Ox O2 Delivery O2 Flow Rate FiO2 08/10/17 09:16 97 21 08/10/17 09:00 82 08/10/17 08:00 82 08/10/17 07:15 98.9 83 20 108/61 (77) 94 08/10/17 07:15 81 08/10/17 07:15 94 Room Air 08/10/17 06:45 82 08/10/17 05:02 78 08/10/17 04:16 74 08/10/17 03:56 72 08/10/17 03:50 98.0 76 21 152/65 (94) 93 08/10/17 02:17 75 08/10/17 01:14 77 08/10/17 00:46 76 08/09/17 23:34 97.9 78 20 136/63 (87) 95 08/09/17 23:34 80 08/09/17 22:17 84 08/09/17 21:30 85 08/09/17 21:03 95 21 08/09/17 20:15 86 08/09/17 19:15 73 08/09/17 19:15 Room Air 08/09/17 19:15 97.6 80 20 151/70 (97) 98 08/09/17 18:00 78 08/09/17 17:00 83 08/09/17 16:00 78 08/09/17 15:00 98.1 79 20 107/55 (72) 94 08/09/17 15:00 68 08/09/17 14:00 70 08/09/17 13:00 72 08/09/17 12:00 78 08/09/17 11:00 71 08/09/17 11:00 98.2 70 18 101/50 (67) 95 08/09/17 10:43 93 21 08/09/17 10:00 76 Result Diagram: 08/09/17 0553 08/09/17 0425 (1) S/P thoracotomy Plan: puilm toileting OOB, ambulate chest tube removed pain control consult pt (2) Hx of non-Hodgkin's lymphoma (3) Lung mass Plan: path pending (4) Hyperlipemia (5) Hypertension Plan: controlled Sara Santos Aug 10, 2017 09:47
[2017-08-10] MEDS: PANTOPRAZOLE SOD 40 MG DELAYED RELEASE TAB PO SCH (20:47)
[2017-08-10] MEDS: DOCUSATE CALCIUM 240 MG CAP PO SCH (20:47)
[2017-08-11] VITALS (11 sets, daily range): BP systolic 98–136; BP diastolic 55–68; PULSE 82–106; RESP 18–20; TEMP 98–99.4; O2SAT 94–95
[2017-08-11] MEDS: RESP: ALBUTEROL 2.5 MG/3 ML NEB (SCH) NEB ×2 (04:37→09:17)
[2017-08-11] MEDS: ACETAMINOPHEN/HYDROcodone 325 MG/5 MG TAB PO PRN ×2 (04:38→07:36)
--- NOTE | 2017-08-11 05:18 | RADRPT ---
EXAM DATE/TIME: 08/11/2017 04:28 [facility] COMPARISON: CHEST SINGLE AP, August 09, 2017, 3:22. INDICATIONS : Chest tube removal. MEDICAL HISTORY : Hypertension. Lung mass SURGICAL HISTORY : Appendectomy. ENCOUNTER: Subsequent ACUITY: 3 days PAIN SCORE: 0/10 LOCATION: Bilateral chest FINDINGS: A single view of the chest demonstrates stable, elevation of the right hemidiaphragm with bibasilar a telectatic changes/scarring. Right IJ Rmtiyf-d-Rtyl with the tip projecting over the central venous s ystem. Right apical pneumothorax actually appears somewhat smaller now measuring 1.8 cm and. Right-si ded thoracostomy tube has been removed. Heart size is normal. Dextroscoliosis of the dorsal spine wit h associated degenerative changes. CONCLUSION: 1. Stable elevation of the right hemidiaphragm with bibasilar atelectasis/scarring. 2. Right apical pneumothorax actually appears somewhat smaller now measuring 1.8 cm in depth. 3. Endotracheal and nasogastric tubes have been removed. Terry Barber MD on August 11, 2017 at 5:13 Board Certified Radiologist. This report was verified electronically.
[2017-08-11] MEDS: MULTIVITAMIN TAB PO SCH (07:35)
[2017-08-11] MEDS: HYDROCHLOROTHIAZIDE 25 MG TAB PO SCH (07:35)
[2017-08-11] MEDS: ATORVASTATIN 80 MG TAB PO SCH (07:35)
[2017-08-11] MEDS: CETIRIZINE HCL 10 MG TAB PO SCH (07:35)
[2017-08-11] MEDS: LISINOPRIL 5 MG TAB PO SCH (07:35)
[2017-08-11] MEDS: SODIUM CHLORIDE 0.9% FLUSH 10 ML FLUSH IV FLUSH SCH (07:36)
[2017-08-11] MEDS ORDERED: DOCU1CAP26 PO (11:25)
[2017-08-11] MEDS ORDERED: HYDR-3516 PO (11:25)
--- NOTE | 2017-08-11 11:40 | HHI.DS ---
Discharge Summary Admission Date Aug 08, 2017 at 05:36 Discharge Date: Aug 11, 2017 Admitting Diagnosis lung mass (1) Lung mass Diagnosis: Principal ICD Codes: R91.8 - Other nonspecific abnormal finding of lung field (2) Hx of non-Hodgkin's lymphoma Diagnosis: Principal ICD Codes: Z85.72 - Personal history of non-Hodgkin lymphomas (3) Hyperlipemia Diagnosis: Principal ICD Codes: E78.5 - Hyperlipidemia, unspecified (4) Hypertension Diagnosis: Principal ICD Codes: I10 - Essential (primary) hypertension (5) S/P thoracotomy Diagnosis: Secondary ICD Codes: Z98.890 - Other specified postprocedural states Procedures 1. Robotic Right Lower Lobe Mass Resection 08/08 2. Right Muscle-Sparing Thoracotomy 3. Right Lower Lobectomy 4. Mediastinal Lymph Node Dissection. 5. 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 PMH: , DJD, HLP, HTN, Non-Hodgkin's lymphoma , urge urinary incontinence surgery: 08/08 1. Robotic Right Lower Lobe Mass Resection 2. Right Muscle-Sparing Thoracotomy 3. Right Lower Lobectomy 4. Mediastinal Lymph Node Dissection. 5. Intercostal Nerve Block CBC/BMP: 08/09/17 0553 08/09/17 0425 Significant Findings Laboratory Tests Test 08/09/17 04:25 08/09/17 05:53 Blood Urea Nitrogen 19 MG/DL (7-18) Random Glucose 110 MG/DL (74-106) Sodium Level 130 MEQ/L (136-145) Chloride Level 92 MEQ/L (98-107) Estimat Glomerular Filtration Rate 58 ML/MIN (>89) Red Blood Count 3.79 MIL/MM3 (4.00-5.30) Hematocrit 33.7 % (35.0-46.0) Neutrophils (%) (Auto) 86.7 % (16.0-70.0) Lymphocytes (%) (Auto) 6.8 % (9.0-44.0) Neutrophils # (Auto) 9.0 TH/MM3 (1.8-7.7) Lymphocytes # (Auto) 0.7 TH/MM3 (1.0-4.8) Imaging Last Impressions Chest X-Ray 08/11/17 0600 Signed Impressions: Service Date/Time: Friday, August 11, 2017 04:28 - CONCLUSION: 1. Stable elevation of the right hemidiaphragm with bibasilar atelectasis/scarring. 2. Right apical pneumothorax actually appears somewhat smaller now measuring 1.8 cm in depth. 3. Endotracheal and nasogastric tubes have been removed. Terry Barber MD PE at Discharge GENERAL: A&O x 3 SKIN: Warm and dry. incision intact and well approximated right postero lateral chest wall / dressing over chest tube on site property manager: Normocephalic. EYES: No scleral icterus. No injection or drainage. NECK: Supple, trachea midline. No JVD or lymphadenopathy. CARDIOVASCULAR: Regular rate and rhythm without murmurs, gallops, or rubs. RESPIRATORY: Breath sounds equal bilaterally. No accessory muscle use. GASTROINTESTINAL: Abdomen soft, non-tender, nondistended. MUSCULOSKELETAL: No cyanosis, or edema. BACK: Nontender without obvious deformity. No CVA tenderness. Hospital Course 08/09 pt had nausea and vomiting last pm , now improved add prn reglan consult pt/ pulm toileting path pending CXR noted small stable right apical PTX 08/10 no air leak / chest drained 40cc chest tube removed without difficulty will consult PT eval for dc in am 08/11 cxr noted small right apical ptx, smaller in size, on room air stable for dc home add pt eval at home Pt Condition on Discharge: Good Discharge Disposition: Disch w/ Home Health Serv Discharge Instructions DIET: Follow Instructions for: As Tolerated, No Restrictions Activities you can perform: Full Weight Bearing, Shower Only-No Bath Activities to avoid: Strenuous Activity, Driving Additional Activity Instructio: no lifting > 8 lbs or gallon of milk Follow up Referrals: Oncology/Hematology - 4 Weeks with Jim Mauricio MD PCP Follow-up with Dr Concepcion Morales [address] [facility] [address] Surgical - 2 Weeks with Sara Santos New Medications: Docusate Calcium (Sm Stool Softener) 240 Mg Cap 240 MG PO HS for Constipation, #30 CAP 0 Refills Hydrocodone/Acetaminophen (Hydrocodone-Acetamin 5-325 mg) 5 Mg-325 Mg Tablet 1 TAB PO Q4H PRN for PAIN SCALE 3 TO 5, #40 TAB 0 Refills Continued Medications: Atorvastatin (Atorvastatin) 80 Mg Tab 80 MG PO DAILY for Cholesterol Management, #30 TAB 0 Refills Cetirizine (Cetirizine) 10 Mg Tab 10 MG PO DAILY for Allergies, TAB 0 Refills Fluticasone Nasal [place] (Fluticasone Nasal [place]) 50 Mcg/Act Naspr 50 MCG EACH NARE BID for Allergy Management, #1 BOTTLE 0 Refills 50 mcg/spray Hydrochlorothiazide (Hydrochlorothiazide) 25 Mg Tab 25 MG PO DAILY, #30 TAB 0 Refills Lisinopril (Lisinopril) 2.5 Mg Tab 2.5 MG PO DAILY, #30 TAB 0 Refills Multiple Vitamin (Multiple Vitamin) 1 Tab 1 TAB PO DAILY for Nutritional Supplement, TAB 0 Refills Polyethylene Glycol 3350 Powder (Miralax Powder) 17 Gm Powd 17 GM PO DAILY for Constipation, #1 CAN 0 Refills Mix and dissolve one measuring cap-ful (17 grams) in water or juice. Saccharomyces Boulardii (Probiotic) 250 Mg Cap 250 MG PO BID for Nutritional Supplement, CAP 0 Refills Sara Santos Aug 11, 2017 11:40
== END 2017-08-11 12:28 | disposition home health service (06) | DRG 164 ==
LOC: HSDI 05:36 → HCPC 15:30
PROVIDERS: ADMIT Thoracic Surgery (Cardiothoracic Vascular Surgery); ATTEND Thoracic Surgery (Cardiothoracic Vascular Surgery)
PROC: 0BBF0ZX Excision of Right Lower Lung Lobe, Open Approach, Diagnostic (ICD-10-PCS; 2017-08-08)
PROC: 07B70ZX Excision of Thorax Lymphatic, Open Approach, Diagnostic (ICD-10-PCS; 2017-08-08)
PROC: 8E0W4CZ Robotic Assisted Procedure of Trunk Region, Percutaneous Endoscopic Approach (ICD-10-PCS; 2017-08-08)
PROC: 3E0T3BZ Introduction of Anesthetic Agent into Peripheral Nerves and Plexi, Percutaneous Approach (ICD-10-PCS; 2017-08-08)
PROC: 0W9930Z Drainage of Right Pleural Cavity with Drainage Device, Percutaneous Approach (ICD-10-PCS; 2017-08-08)
PROC: 0BTF0ZZ Resection of Right Lower Lung Lobe, Open Approach (ICD-10-PCS; principal; 2017-08-08 07:45)
DX: C34.31 Malignant neoplasm of lower lobe, right bronchus or lung (principal); C85.90 Non-Hodgkin lymphoma, unspecified, unspecified site; J44.9 Chronic obstructive pulmonary disease, unspecified; J95.811 Postprocedural pneumothorax; I35.0 Nonrheumatic aortic (valve) stenosis; E78.5 Hyperlipidemia, unspecified; I10 Essential (primary) hypertension; N39.41 Urge incontinence; M19.90 Unspecified osteoarthritis, unspecified site; R11.2 Nausea with vomiting, unspecified; Y83.8 Other surgical procedures as the cause of abnormal reaction of the patient, or of later complication, without mention of misadventure at the time of the procedure; Y92.239 Unspecified place in hospital as the place of occurrence of the external cause
CPT/HCPCS: 71045; 76937; 80048; 85025; 86850; 86900; 86901; 86920; 88305; 88307; 88309; 88331; 88333; 88341; 88342; 94150; 94640; 94664; J0131; J0690; J1100; J1170; J1200; J1644; J1885; J2060; J2270; J2370; J2405; J2710; J2765; J3010; J7120; J7613